=== PATIENT | male | born 1965 | race African-American/Black ===

== ENCOUNTER 2016-11-18 00:52 | Emergency (ER) | payer SELFPAY ==
[2016-11-18] MEDS ORDERED: Ketorolac Tromethamine 60 MG/2 ML VIAL ONE (01:28)
[2016-11-18] MEDS ORDERED: HYDROcodone/Acetaminophen 10/325 mg Tablet ONE (01:28)
== END 2016-11-18 02:20 | disposition home or self-care (01) ==
LOC: ERS 00:52
DX: M10.9 Gout, unspecified (principal); I10 Essential (primary) hypertension; F17.210 Nicotine dependence, cigarettes, uncomplicated; Z79.899 Other long term (current) drug therapy
CPT/HCPCS: 96372; J1885

== ENCOUNTER 2016-11-18 19:26 | Emergency (ER) | payer SELFPAY ==
--- NOTE | 2016-11-18 21:10 | RAD ---
RIGHT WRIST THREE VIEWS: History: Right wrist pain. FINDINGS: There is soft tissue swelling over the dorsal aspect of the hand and wrist. No evidence for acute fr acture or dislocation. IMPRESSION: Soft tissue swelling without fracture or dislocation. POS: [facility]
[2016-11-18] MEDS ORDERED: HYDROcodone/Acetaminophen 5/325 mg Tablet ONE (21:33)
--- NOTE | 2016-11-18 22:10 | RAD ---
RIGHT HAND THREE VIEWS: History: 51-year-old male with right hand pain. FINDINGS/IMPRESSION: Minimal soft tissue swelling over the dorsal aspect of the hand. No acute fracture, dislocation, or other acute process. POS: [facility]
== END 2016-11-18 21:46 | disposition home or self-care (01) ==
LOC: ERS 19:26
DX: M10.9 Gout, unspecified (principal); I10 Essential (primary) hypertension; F17.210 Nicotine dependence, cigarettes, uncomplicated; Z79.899 Other long term (current) drug therapy

== ENCOUNTER 2016-12-20 21:50 | Emergency (ER) | payer SELFPAY ==
[2016-12-20 22:41] LABS: #Eosinphils 0.1 thou/uL (0.0-0.7); #Lymphocytes 1.7 thou/uL (1.20-3.40); #Monocytes 0.8 thou/uL (0.11-0.59); #Neutrophils 7.7 thou/uL (1.40-6.50); %Basophils 0.4 % (0.0-1.0); %Eosinophils 0.6 % (0.0-10.0); %Lymphocytes 16.5 % (21.0-51.0); %Monocytes 8.1 % (0.0-10.0); Hematocrit 46.8 % (42.0-52.0); Mean Platelet Volume 10.8 fL (7.4-10.4); Red Blood Cell (RBC) Count 5.93 mill/uL (4.70-6.10); White Blood Cell (WBC) Count 10.4 thou/uL (4.8-10.8)
[2016-12-20 22:52] LABS: ALT (SGPT) 26 U/L (8-55); AST (SGOT) 22 U/L (5-34); Alkaline Phosphatase 61 U/L (40-150); Anion Gap 16 mmol/L (10-20); BUN (Urea Nitrogen) 19 mg/dL (8.9-20.6); Bilirubin, Total 0.5 mg/dL (0.2-1.2); Calc. Creatinine Clearance 0 mL/min (70-130); Calcium 9.9 mg/dL (7.8-10.44); Carbon Dioxide 21 mmol/L (22-29); Chloride 101 mmol/L (98-107); Estimated GFR-MDRD 85; Globulin 3.9 g/dL (2.4-3.5); Lipase 30 U/L (8-78); Protein, Total 8.2 g/dL (6.0-8.3)
[2016-12-20] MEDS ORDERED: Lidocaine Viscous Sol 2% 15 ml UD Cup ONE (23:40)
[2016-12-20] MEDS ORDERED: Ondansetron ODT 8 MG TAB ONE (23:40)
[2016-12-20] MEDS ORDERED: Mag-Al 1200 mg/1200 mg/30 ML UDCUP ONE (23:40)
== END 2016-12-21 00:09 | disposition home or self-care (01) ==
LOC: ERS 21:50
DX: R11.2 Nausea with vomiting, unspecified (principal); R10.9 Unspecified abdominal pain; I10 Essential (primary) hypertension; M10.9 Gout, unspecified; F17.210 Nicotine dependence, cigarettes, uncomplicated
CPT/HCPCS: 36415; 80053; 83690; 85025; 99284

== ENCOUNTER 2017-01-04 10:31 | Emergency (ER) | payer SELFPAY ==
--- NOTE | 2017-01-04 12:12 | RAD ---
RIGHT WRIST 3 VIEWS: Date: 01/04/17 PROVIDED CLINICAL HISTORY: Right wrist pain. FINDINGS: There is no evidence for fracture or other acute osseous abnormality. Alignment appears anatomic. Bambi nt spaces appear preserved. The soft tissues appear radiographically unremarkable. IMPRESSION: No evidence for an acute process. POS: [facility]
[2017-01-04] MEDS ORDERED: HYDROcodone/Acetaminophen 5/325 mg Tablet ONE (12:39)
[2017-01-04] MEDS ORDERED: Ketorolac Tromethamine 30 MG/ML VIAL ONE (12:39)
== END 2017-01-04 13:01 | disposition home or self-care (01) ==
LOC: ERS 10:31
DX: M10.9 Gout, unspecified (principal); I10 Essential (primary) hypertension; F17.210 Nicotine dependence, cigarettes, uncomplicated
CPT/HCPCS: 96372; J1885

== ENCOUNTER 2017-03-17 06:18 | Emergency (ER) | payer SELFPAY ==
[2017-03-17] MEDS ORDERED: Ketorolac Tromethamine 60 MG/2 ML VIAL ONE (07:38)
== END 2017-03-17 08:18 | disposition home or self-care (01) ==
LOC: ERS 06:18
DX: M10.9 Gout, unspecified (principal); I10 Essential (primary) hypertension; F17.210 Nicotine dependence, cigarettes, uncomplicated
CPT/HCPCS: 96372; J1885

== ENCOUNTER 2017-05-20 07:15 | Emergency (ER) | payer SELFPAY ==
--- NOTE | 2017-05-20 08:20 | CT ---
CT HEAD WITHOUT CONTRAST: Technique: Multiple axial tomograms were obtained through the head without IV enhancement. Indications: Headache. FINDINGS: Ventricles have normal size and position. No evidence of intracranial mass or hemorrhage. No infarct. Sinuses and mastoids are aerated. IMPRESSION: No acute finding. POS: [facility]
[2017-05-20] MEDS ORDERED: Dexamethasone 4 MG TAB ONE (09:23)
[2017-05-20] MEDS ORDERED: Acetaminophen 500 MG TAB ONE (09:23)
[2017-05-20] MEDS ORDERED: Ibuprofen 800 MG TAB ONE (09:23)
== END 2017-05-20 10:05 | disposition home or self-care (01) ==
LOC: ERS 07:15
DX: R51 Headache (principal); I10 Essential (primary) hypertension; M10.9 Gout, unspecified; F17.220 Nicotine dependence, chewing tobacco, uncomplicated
CPT/HCPCS: 70450; J8540

== ENCOUNTER 2018-09-06 22:10 | Emergency (ER) | payer SELFPAY ==
[2018-09-06] MEDS ORDERED: Ketorolac Tromethamine 30 MG/ML VIAL ONE (22:41)
== END 2018-09-06 23:25 | disposition home or self-care (01) ==
LOC: ERS 22:10
DX: S16.1XXA Strain of muscle, fascia and tendon at neck level, initial encounter (principal); I10 Essential (primary) hypertension; M10.9 Gout, unspecified; F17.220 Nicotine dependence, chewing tobacco, uncomplicated; Z79.899 Other long term (current) drug therapy; X58.XXXA Exposure to other specified factors, initial encounter
CPT/HCPCS: 96372; 99283; J1885

== ENCOUNTER 2019-03-02 22:07 | Emergency (ER) | payer SELFPAY ==
[2019-03-02] MEDS ORDERED: Fluorescein Opthalmic Strip ONE ×2 (22:40→22:42)
[2019-03-02] MEDS ORDERED: Proparacaine 0.5% Opth 15 ML BOT ONE (22:40)
[2019-03-02] MEDS ORDERED: traMADol HCl 50 MG TAB ONE (23:18)
== END 2019-03-02 23:49 | disposition home or self-care (01) ==
LOC: ERS 22:07
DX: H16.133 Photokeratitis, bilateral (principal); I10 Essential (primary) hypertension; F17.220 Nicotine dependence, chewing tobacco, uncomplicated
CPT/HCPCS: 99283

== ENCOUNTER 2019-10-20 20:40 | Emergency (ER) | payer SELFPAY ==
[2019-10-20] MEDS ORDERED: Ketorolac Tromethamine 30 MG/ML VIAL ONE (21:18)
[2019-10-20] MEDS ORDERED: Dexamethasone 10 MG/ML VIAL ONE (21:37)
== END 2019-10-20 21:42 | disposition home or self-care (01) ==
LOC: ERS 20:40
DX: M10.9 Gout, unspecified (principal); I10 Essential (primary) hypertension; F17.210 Nicotine dependence, cigarettes, uncomplicated; Z79.899 Other long term (current) drug therapy
CPT/HCPCS: 96372; 99283; J1100; J1885

== ENCOUNTER 2024-02-15 02:53 | Emergency (ER) | payer OTHER, SELFPAY ==
[2024-02-15] MEDS ORDERED: Dexamethasone 10 MG/ML VIAL ONE (03:38)
[2024-02-15] MEDS ORDERED: Colchicine 0.6 MG TAB PO SCH (04:00)
== END 2024-02-15 04:15 | disposition home or self-care (01) ==
LOC: ERS 02:53
DX: M10.9 Gout, unspecified (principal); I10 Essential (primary) hypertension; F17.210 Nicotine dependence, cigarettes, uncomplicated
CPT/HCPCS: 96372; 99282; J1100